=== PATIENT | male | born 1970 | race Caucasian/White ===

== ENCOUNTER 2017-09-18 16:37 | Emergency (ER) | payer MEDICAID ==
[~2017-09-18] VITALS: Ht 172.7 cm; Wt 156.5 kg
[2017-09-18 16:53] VITALS: BP 132/78
--- NOTE | 2017-09-18 16:56 | NUR ---
47Y/M BIB SELF C/O PORSHA LEG PAIN. PT STATES " HE HAS PORSHA LEG PAIN/SWELLING X 3 WEEKS" PT PORSHA LEGS HAS +3 PITTING EDEMA. PT PORSHA LEG ELEVATED AT THIS TIME. PT DENIES N/V/D; AAOX4 WITH EVEN AND STEADY GAIT; LUNGS CLEAR BL; HR EVEN AND REGULAR; PT DENIES ANY FEVER, CP, SOB, OR COUGH AT THIS TIME; PATIENT STATES PAIN OF 7/10 AT THIS TIME; VSS; PATIENT POSITIONED FOR COMFORT; HOB ELEVATED; BEDRAILS UP X1; BED DOWN. ER MD MADE AWARE OF PT STATUS. MED HX: HTN RX: ATENOLOL, [place]AN, CLONIDINE, NORVASC, HCTZ, SIMVASTATIN, METFORMIN
[2017-09-18] MEDS ORDERED: FUROSEMIDE 100 MG/10 ML VIAL IVP ONE (17:10)
[2017-09-18] MEDS ORDERED: ENALAPRILAT 2.5 MG/2 ML VIAL IVP ONE (17:10)
[2017-09-18 17:53] LABS: BASOPHILS # (AUTO) 0.1 K/uL (0.00-0.22); BASOPHILS % (AUTO) 0.7 % (0.0-2.0); EOSINOPHILS # (AUTO) 0.1 K/uL (0-0.4); EOSINOPHILS % (AUTO) 1.4 % (0.0-4.0); HEMATOCRIT 43.2 % (36-52); HEMOGLOBIN 14.3 g/dL (12.0-18.0); LYMPHOCYTES # (AUTO) 1.6 K/uL (2.0-11.5); LYMPHOCYTES % (AUTO) 21.3 % (20.5-51.1); MEAN CORPUSCULAR HEMOGLOBIN 29 pg (27-31); MEAN CORPUSCULAR HGB CONC 33 g/dL (33-37); MEAN CORPUSCULAR VOLUME 87.7 fL (80-94); MONOCYTES # (AUTO) 0.8 K/uL (0.8-1.0); MONOCYTES % (AUTO) 10.6 % (1.7-9.3); PLATELET COUNT (AUTO) 250 K/uL (140-450); RED BLOOD CELL COUNT(AUTO) 4.93 MIL/uL (4.20-6.10); RED CELL DISTRIBUTION WIDTH 14.7 % (11.6-13.7); WHITE BLOOD COUNT (AUTO) 7.6 K/uL (4.8-10.8)
[2017-09-18 18:12] LABS: ANION GAP 11.6 (8-16); CARBON DIOXIDE 29.3 mmol/L (21-32); CREATININE 1.1 mg/dL (0.7-1.3); POTASSIUM 3.9 mmol/L (3.5-5.1); PROTHROMBIN TIME 10.6 secs (10.8-13.4); TOTAL BILIRUBIN 0.5 mg/dL (0.0-1.0)
[2017-09-18 18:22] LABS: AMYLASE 56 U/L (25-115); LIPASE 191 U/L (73-393)
[2017-09-18 19:28] LABS: APPEARANCE,URINE CLEAR (CLEAR); BILIRUBIN,URINE NEGATIVE (NEGATIVE); BLOOD, URINE TRACE-L (NEGATIVE); COLOR,URINE YELLOW (YELLOW); LEUKOCYTE ESTERASE ,URINE NEGATIVE (NEGATIVE); NITRITE, URINE NEGATIVE (NEGATIVE); UGLUCOSE NEGATIVE (NEGATIVE)
[2017-09-18 19:30] VITALS: BP 158/90
--- NOTE | 2017-09-18 19:30 | NUR ---
Patient discharged with v/s stable. Written and verbal after care instructions given and explained. Patient alert, oriented and verbalized understanding of instructions. Ambulatory with steady gait. All questions addressed prior to discharge. ID band removed. Patient advised to follow up with PMD. Rx of LASIX given. Patient educated on indication of medication including possible reaction and side effects. Opportunity to ask questions provided and answered.
--- NOTE | 2017-09-18 19:31 | NUR ---
PT STATED THAT DR. HORTON WAS GOING TO FILL HIS RX ATENOLOL, SIMVASTATIN, METFORMIN AND OMEPRAZOLE. MADE DR SHARMA AWARE. MD TO WRITE RX.
[2017-09-18 19:39] LABS: RBC,URINE 0-5 (RARE) /HPF (0-5); WBC,URINE 0-5 (RARE) /HPF (0-5)
--- NOTE | 2017-09-18 19:40 | NUR ---
MA[employer] TECHNICIAN HANDED RX TO PT.
== END 2017-09-18 19:40 | disposition home or self-care (01) ==
LOC: MED 16:37 → EDBD 16:37 → MED 19:40
DX: I11.0 Hypertensive heart disease with heart failure (principal); I50.9 Heart failure, unspecified; R60.1 Generalized edema; E11.9 Type 2 diabetes mellitus without complications; E78.5 Hyperlipidemia, unspecified; E66.01 Morbid (severe) obesity due to excess calories
CPT/HCPCS: 36415; 71045; 80053; 81001; 82150; 83690; 83880; 84484; 85025; 85610; 85730; 93970; 96374; 96375; 99285; J1940; J3490; Q0092